=== PATIENT | male | born 1990 | race African-American/Black ===

== ENCOUNTER 2016-09-07 21:17 | Emergency (ER) | payer OTHER ==
[~2016-09-07] VITALS: Ht 180.3 cm; Wt 74.0 kg
[2016-09-07] MEDS ORDERED: AUGMENTIN875 MG PO (23:20)
[2016-09-07 23:39] VITALS: BP 136/81
== END 2016-09-07 23:40 ==
LOC: EME 21:17
PROC: 0CQ0XZZ Repair Upper Lip, External Approach (ICD-10-PCS; principal; 2016-09-07)
DX: S01.511A Laceration without foreign body of lip, initial encounter (principal); S00.83XA Contusion of other part of head, initial encounter; W51.XXXA Accidental striking against or bumped into by another person, initial encounter; Y92.149 Unspecified place in prison as the place of occurrence of the external cause
CPT/HCPCS: 99281; 99284